=== PATIENT | female | born 1995 | race Caucasian/White ===

== ENCOUNTER 2017-04-03 22:27 | Inpatient (IN) | payer OTHER ==
[2017-04-03 23:01] LABS: MONOCYTES % (AUTO) 5.5 % (4-12); Mean Corpuscular Hemoglobin 26.8 pg (27.0-35.0); NEUTROPHILS % (AUTO) 74.4 % (40-74); Platelet Count 265 bil/L (150-400)
[2017-04-03 23:02] LABS: BASOPHILS % (AUTO) 0.2 % (0-3); EOSINOPHILS % (AUTO) 0.3 % (0-5)
[2017-04-03] MEDS ORDERED: PREN-56 PO (23:13)
--- NOTE | 2017-04-04 00:57 | HP ---
[address] [address] HISTORY AND PHYSICAL PATIENT: CHRIS HEADLEY : 1995 MR#: [id number] ADMIT: 04/03/2017 JOB ID: [id number] ADMISSION/TRANSPORT NOTE: DATE OF SERVICE: 04/03/2017 HISTORY: Patient is a 21-year-old, G1, P0, AB 0, woman followed prenatally at [facility]. See record for details. Her due date is April 28, 2017, to have first child. Early ultrasound confirmed menstrual dating. course has been relatively uncomplicated, note rubella immune status, Rh positive status, nondiabetic, and without worrisome hypertension. We do not have recent group B strep test results to use. She did have Tdap in February and flu shot in January of this year. Main concern in has been the morbid obesity. She weighs 346 pounds this evening, up by 35 pounds during the . Our recorded height early in was 67-1/2 inches, thus would give BMI of about 53.4 tonight. On the other hand, recorded height at the [facility] was 166 cm during this , which would give BMI of 56.9. The patient was seen at the [facility] along the way for ultrasounds due to difficulty in adequately imaging the fetus. Note that in light of morbid obesity with BMI crossing 50 and, in fact, 55, plan has been to transfer to [facility] and patient has had appointment scheduled for next week for that official transfer of care with plans to deliver there; however, she ruptured membranes this evening, clear fluid, and has not truly gone into labor, having only a tightening that she feels about every 10 minutes. The patient is thus at approximately 36 and 2/7th weeks of gestation, with spontaneous rupture of membranes and uncommon contractions, for transport to [facility] for planned labor and delivery there due to morbid obesity. PHYSICAL EXAMINATION ON ADMISSION: VITAL SIGNS: Weight 346 pounds. Blood pressure 129/72. NECK: No thyromegaly. LUNGS: Clear to auscultation and percussion. HEART: Regular in rate and rhythm. ABDOMEN: Fundal height: Large abdominal wall, thick, positive heartbeat. Reactive nonstress test when intermittently obtained by hand holding. PELVIC EXAMINATION: Cervix 1-1/2 to 2 cm, 80% effaced, -1 station. Vertex presentation. Clear amniotic fluid. DIAGNOSTIC DATA: Admission hemoglobin 11.6, platelets 265, white count 12.8. Note that there has not been a group B strep test performed in , anticipate this will be done on arrival at the [facility]. IMPRESSION: 1. A 36 and 2/7th week gestation per menstrual dating, confirmed by early ultrasound dating. 2. Spontaneous rupture of membranes. 3. No true labor at this time, at the time of transport. 4. Morbid obesity with body mass index of 56.9 using weight of 346 pounds on admission and height of 166 cm as recorded at the [facility]. 5. Borderline intermittent hypertension noted in (as high as 140/84), although typically blood pressure is normal. No antihypertensive medications needed. 6. No gestational diabetes. 7. Declined quad screen. Did have level two ultrasound--normal anatomy where visualized, not all seen. 8. Rh positive status. 9. Rubella immune status. 10. Up to date with Tdap and flu shot. 11. Prior arm fracture. 12. No known drug allergies. 13. Family history of diabetes (father, type 2), breast cancer (maternal aunt), and twins (maternal grandfather is a twin, potential other sets on mom's and dad's sides.) PLAN: 1. I have spoken with Dr. Delfina Giordano, perinatologist at the [facility], regarding transport of this patient with ruptured membranes at 36+ weeks of gestation in the setting of morbid obesity that supercedes the threshold for delivery at [facility]. I appreciate Dr. Giordano's acceptance of this transport. We will send a copy of this note to be helpful as well as copies of records, and also [facility] physicians may tap into the ultrasounds and consultations accomplished there during this . 2. Anticipate a vaginal strep test will be obtained on admission at the [facility] since we do not have one yet, although intravenous antibiotics will likely be given in labor regardless.
--- NOTE | 2017-04-04 01:02 | DIS ---
[address] [address] DISCHARGE SUMMARY PATIENT: CHRIS HEADLEY : 1995 MR#: [id number] ADMIT: 04/03/2017 JOB ID: [id number] DIS: DISCHARGE DIAGNOSES: 1. A 36+ week . 2. Spontaneous rupture of membranes. 3. Occasional uterine contractions, no true labor. 4. Morbid obesity, with increased weight gain in , and body mass index beyond threshold for delivery at [facility]. 5. Unknown group B strep status. PROCEDURES PERFORMED DURING HOSPITALIZATION: 1. Admission. 2. Intravenous line placement. 3. Discharge. HOSPITAL COURSE: Patient was admitted to [facility] after spontaneous rupture of membranes was confirmed, and monitored, and intravenous line placed. It was determined that the patient had truly ruptured membranes, but was not in true labor, and could be transported to the [facility] where plans had been for her to deliver anyway due to morbid obesity. I spoke with Dr. Delfina Giordano, perinatologist at [facility], who accepted the transport. The patient was sent by ambulance with ALS and with accompanying Labor and Delivery nurse. DISCHARGE PROGRAM: The patient has been transported to the [facility] Labor and Delivery where labor and delivery management will occur.
== END 2017-04-04 | disposition short-term general hospital (02) | DRG 782 ==
LOC: FBCO 22:27 → FBC 22:41
PROVIDERS: ADMIT Obstetrics & Gynecology; ATTEND Obstetrics & Gynecology
DX: O99.213 Obesity complicating pregnancy, third trimester (principal); Z68.43 Body mass index [BMI] 50.0-59.9, adult; E66.01 Morbid (severe) obesity due to excess calories; Z3A.36 36 weeks gestation of pregnancy